=== PATIENT | male | born 1945 | race African-American/Black ===

== ENCOUNTER 2019-11-21 13:22 | Inpatient (IN) | payer MEDICAID, OTHER ==
[~2019-11-21] VITALS: Ht 172.7 cm; Wt 86.8 kg
[2019-11-21] MEDS ORDERED: LASIX (13:29)
[2019-11-21] MEDS ORDERED: ELIQUIS (13:29)
[2019-11-21] MEDS ORDERED: SODIUM CHLORIDE 0.9% 1,000 ML IV ONE (14:45)
[2019-11-21 15:48] LABS: CHLORIDE 117 mEq/L (98-107)
[2019-11-21 16:00] LABS: CLARITY URINE CLEAR (CLEAR); COLOR URINE YELLOW (YELLOW); KETONES URINE NEGATIVE (NEGATIVE); LEUKOCYTE ESTERASE URINE NEGATIVE (NEGATIVE); NITRITE URINE NEGATIVE (NEGATIVE); OCCULT BLOOD URINE 2+ (NEGATIVE); PROTEIN URINE 2+ (NEGATIVE); UROBILINOGEN URINE 0.2 E.U./dL (0.2-1.0)
[2019-11-21] MEDS ORDERED: INSULIN REGULAR (HUMULIN R) 300UNITS/3ML IV ONE (16:45)
[2019-11-21] MEDS ORDERED: DEXTROSE 50% WATER 50ML SYRINGE IV ONE (16:45)
[2019-11-21] MEDS ORDERED: CALCIUM GLUCONATE 1,000 MG in DEXT 5% WATER 100 ML IV ONE (16:45)
[2019-11-21] MEDS ORDERED: SODIUM BICARBONATE 8.4% 1 MEQ/ML 50ML SYR IV ONE (16:45)
[2019-11-21 16:58] LABS: HEMATOCRIT. 40.9 % (42.0-52.0); HEMOGLOBIN. 13.2 g/dL (14.0-18.0); MEAN CORPUSCULAR HEMOGLOBIN 20.9 pg (28.0-32.0); MEAN CORPUSCULAR VOLUME 64.9 fL (80.0-94.0); PLATELET 189 x1000/uL (130-400); RED CELL DISTRIBUTION WIDTH 18.2 % (11.6-14.6)
[2019-11-21 17:28] LABS: PLATELET ESTIMATE NORMAL
[2019-11-21] MEDS ORDERED: HYDRALAZINE 20MG/ML VIAL IV PRN (17:45)
[2019-11-21] MEDS ORDERED: ACETAMINOPHEN 325MG TABLET PO PRN (17:45)
[2019-11-21] MEDS ORDERED: ONDANSETRON HCL 4MG/2ML INJ IV PRN (17:45)
[2019-11-21] MEDS ORDERED: CEFTRIAXONE 1 G PREMIX 50 ML IV SCH (18:00)
[2019-11-21] MEDS ORDERED: SODIUM POLYSTYRENE SULFONATE 15 G/60 ML BOT PO NR (18:00)
[2019-11-21] MEDS ORDERED: ASPIRIN 81MG TABLET PO ONE (18:30)
[2019-11-21] MEDS ORDERED: AZITHROMYCIN 500 MG in DEXT 5% WATER 250 ML IV SCH (19:00)
[2019-11-21 21:15] VITALS: BP 130/97
[2019-11-21] MEDS: HEPARIN 5000 UNITS/ML VIAL SUBCUT SCH (21:40)
[2019-11-21 22:24] VITALS: BP 130/97
[2019-11-22] VITALS: BP 104/75
[2019-11-22 04:00] VITALS: BP 124/95
[2019-11-22 07:58] LABS: HEMATOCRIT. 43.6 % (42.0-52.0); MEAN CORPUSCULAR HEMOGLOBIN 20.9 pg (28.0-32.0); MEAN CORPUSCULAR VOLUME 65.1 fL (80.0-94.0); RED CELL DISTRIBUTION WIDTH 18.5 % (11.6-14.6)
[2019-11-22 08:00] VITALS: BP 110/79
[2019-11-22 08:06] LABS: CHLORIDE 120 mEq/L (98-107)
[2019-11-22] MEDS: HEPARIN 5000 UNITS/ML VIAL SUBCUT SCH ×2 (08:43→21:23)
[2019-11-22 09:48] LABS: PLATELET 208 x1000/uL (130-400)
[2019-11-22 09:52] LABS: PLATELET ESTIMATE NORMAL
[2019-11-22 12:00] VITALS: BP_SYST 110; BP_SYST 125; BP_DIAS 79; BP_DIAS 86
[2019-11-22] MEDS: DEXAMETHASONE 2MG TABLET PO SCH (14:40)
[2019-11-22] MEDS: CEFTRIAXONE 1,000 MG in DEXTROSE 5% WATER 50 ML IV SCH (14:40)
[2019-11-22] MEDS: SODIUM BICARBONATE 100 MEQ in DEXTROSE 5% WATER 900 ML IV SCH ×2 (15:51→23:53)
[2019-11-22] MEDS: AZITHROMYCIN 500MG in DEXTROSE 5% WATER 250ML IV SCH (15:51)
[2019-11-22 16:00] VITALS: BP 107/76
[2019-11-22] MEDS: ALBUTEROL 6.7GM HFA INHALER ORI SCH ×2 (17:31→21:20)
[2019-11-22 20:00] VITALS: BP 116/85
[2019-11-23] VITALS (7 sets, daily range): BP systolic 114–133; BP diastolic 87–96
[2019-11-23] MEDS: TRAZODONE HCL 50MG TABLET PO PRN (02:25)
[2019-11-23] MEDS: ALBUTEROL 6.7GM HFA INHALER ORI SCH ×4 (03:10→21:00)
[2019-11-23 07:49] LABS: CHLORIDE 118 mEq/L (98-107)
[2019-11-23 08:03] LABS: HEMATOCRIT. 38.2 % (42.0-52.0); HEMOGLOBIN. 12.2 g/dL (14.0-18.0); MEAN CORPUSCULAR HEMOGLOBIN 20.9 pg (28.0-32.0); MEAN CORPUSCULAR VOLUME 65.4 fL (80.0-94.0); MEAN PLATELET VOLUME 10.7 fl (7.4-10.4); PLATELET 171 x1000/uL (130-400); RED BLOOD CELL COUNT 5.84 mill/uL (4.7-6.1); RED CELL DISTRIBUTION WIDTH 18.3 % (11.6-14.6)
[2019-11-23] MEDS: DEXAMETHASONE 2MG TABLET PO SCH (09:48)
[2019-11-23] MEDS: HEPARIN 5000 UNITS/ML VIAL SUBCUT SCH (09:48)
[2019-11-23 10:50] LABS: NUCLEATED RED BLOOD CELLS 1 /100 WBC
[2019-11-23 10:51] LABS: PLATELET ESTIMATE NORMAL
[2019-11-23] MEDS: SODIUM BICARBONATE 100 MEQ in DEXTROSE 5% WATER 900 ML IV SCH ×2 (12:59→19:00)
[2019-11-23] MEDS: CEFTRIAXONE 1,000 MG in DEXTROSE 5% WATER 50 ML IV SCH (12:59)
[2019-11-23] MEDS: AZITHROMYCIN 500MG in DEXTROSE 5% WATER 250ML IV SCH (15:03)
[2019-11-24] VITALS: BP 115/77
[2019-11-24 04:00] VITALS: BP 113/83
[2019-11-24] MEDS: SODIUM BICARBONATE 100 MEQ in DEXTROSE 5% WATER 900 ML IV SCH ×2 (06:22→15:00)
[2019-11-24 07:14] LABS: CHLORIDE 113 mEq/L (98-107)
[2019-11-24 07:18] LABS: HEMATOCRIT. 39.1 % (42.0-52.0); HEMOGLOBIN. 12.6 g/dL (14.0-18.0); RED BLOOD CELL COUNT 6.01 mill/uL (4.7-6.1); RED CELL DISTRIBUTION WIDTH 17.7 % (11.6-14.6)
[2019-11-24 08:00] VITALS: BP 132/97
[2019-11-24 09:15] LABS: PLATELET ESTIMATE NORMAL
[2019-11-24 09:16] LABS: MEAN PLATELET VOLUME 11.4 fl (7.4-10.4); PLATELET 227 x1000/uL (130-400)
[2019-11-24] MEDS ORDERED: SODIUM POLYSTYRENE SULFONATE 15 G/60 ML BOT PO SCH (10:00)
[2019-11-24] MEDS: DEXAMETHASONE 2MG TABLET PO SCH (10:06)
[2019-11-24] MEDS: APIXABAN 5 MG TABLET PO SCH ×2 (10:06→17:16)
[2019-11-24 12:00] VITALS: BP 135/96
[2019-11-24] MEDS: CEFTRIAXONE 1,000 MG in DEXTROSE 5% WATER 50 ML IV SCH ×2 (13:00→17:16)
[2019-11-24] MEDS ORDERED: HALOPERIDOL LACTATE 5MG/ML VIAL IM PRN (13:30)
[2019-11-24] MEDS: RISPERIDONE 0.5MG TABLET PO SCH (13:34)
[2019-11-24] MEDS: DILTIAZEM HCL 30MG TABLET PO SCH ×2 (14:00→17:16)
[2019-11-24] MEDS: AZITHROMYCIN 500MG in DEXTROSE 5% WATER 250ML IV SCH (14:00)
[2019-11-24 16:00] VITALS: BP 139/94
[2019-11-24 20:00] VITALS: BP 115/81
[2019-11-24] MEDS ORDERED: CEFP100T9 PO (22:44)
[2019-11-25] VITALS: BP 134/88
[2019-11-25] MEDS: TRAZODONE HCL 50MG TABLET PO PRN (00:18)
[2019-11-25] MEDS: SODIUM BICARBONATE 100 MEQ in DEXTROSE 5% WATER 900 ML IV SCH (01:00)
[2019-11-25 04:00] VITALS: BP 120/89
[2019-11-25] MEDS: DILTIAZEM HCL 30MG TABLET PO SCH ×3 (05:04→21:20)
[2019-11-25 05:15] LABS: HEMATOCRIT. 35.7 % (42.0-52.0); HEMOGLOBIN. 11.3 g/dL (14.0-18.0); MEAN CORPUSCULAR HEMOGLOBIN 20.5 pg (28.0-32.0); MEAN CORPUSCULAR VOLUME 64.9 fL (80.0-94.0); MEAN PLATELET VOLUME 10.8 fl (7.4-10.4); PLATELET 216 x1000/uL (130-400)
[2019-11-25 05:23] LABS: CHLORIDE 112 mEq/L (98-107)
[2019-11-25 08:00] VITALS: BP 102/76
[2019-11-25 08:03] LABS: PLATELET ESTIMATE NORMAL
[2019-11-25] MEDS: RISPERIDONE 0.5MG TABLET PO SCH ×2 (08:38→16:32)
[2019-11-25] MEDS: DEXAMETHASONE 2MG TABLET PO SCH (08:38)
[2019-11-25] MEDS: APIXABAN 5 MG TABLET PO SCH ×2 (08:40→16:32)
[2019-11-25 12:00] VITALS: BP 99/68
[2019-11-25] MEDS: CEFTRIAXONE 1,000 MG in DEXTROSE 5% WATER 50 ML IV SCH (13:00)
[2019-11-25] MEDS: AZITHROMYCIN 500MG in DEXTROSE 5% WATER 250ML IV SCH (14:00)
[2019-11-25 16:00] VITALS: BP 101/80
[2019-11-25] MEDS: CITRIC ACID/SODIUM CITRATE SOLN 30ML UDC PO SCH ×3 (16:32→16:38)
[2019-11-25 20:00] VITALS: BP 98/68
[2019-11-26] VITALS: BP 116/78
[2019-11-26 04:00] VITALS: BP 121/83
[2019-11-26] MEDS: DILTIAZEM HCL 30MG TABLET PO SCH ×2 (05:53→14:37)
[2019-11-26 08:00] VITALS: BP 111/79
[2019-11-26] MEDS: APIXABAN 5 MG TABLET PO SCH ×2 (08:57→18:18)
[2019-11-26] MEDS: CITRIC ACID/SODIUM CITRATE SOLN 30ML UDC PO SCH ×3 (08:57→18:18)
[2019-11-26] MEDS: RISPERIDONE 0.5MG TABLET PO SCH ×2 (08:57→18:18)
[2019-11-26] MEDS ORDERED: DEXAMETHASONE 2MG TABLET PO SCH (09:00)
[2019-11-26 12:00] VITALS: BP 120/80
[2019-11-26] MEDS: ALBUTEROL 6.7GM HFA INHALER ORI SCH ×2 (12:00→18:00)
[2019-11-26 15:58] LABS: BASOPHILS % 0.1 % (0.0-2.0); HEMATOCRIT. 37.8 % (42.0-52.0); HEMOGLOBIN. 12.1 g/dL (14.0-18.0); LYMPHOCYTES % 8.5 % (20.0-50.0); MEAN CORPUSCULAR HEMOGLOBIN 20.7 pg (28.0-32.0); MEAN PLATELET VOLUME 10.3 fl (7.4-10.4); MONOCYTES % 6.8 % (2.0-8.0); NEUTROPHILS % 84.6 % (40.0-76.0); PLATELET 181 x1000/uL (130-400); RED BLOOD CELL COUNT 5.82 mill/uL (4.7-6.1); RED CELL DISTRIBUTION WIDTH 16.7 % (11.6-14.6)
[2019-11-26 16:00] VITALS: BP 130/93
[2019-11-26 16:21] LABS: CHLORIDE 111 mEq/L (98-107)
[2019-11-26 20:19] VITALS: BP 121/86
== END 2019-11-26 21:21 | disposition short-term general hospital (02) | DRG 871 ==
LOC: ER 13:22 → 7WST 17:14 → EDBEDREQSVC 17:23 → EDBEDREQ 17:23 → ENRESERV 19:32
PROVIDERS: ADMIT Internal Medicine; ATTEND Internal Medicine
DX: A41.89 Other specified sepsis (principal); U07.1 COVID-19; J96.01 Acute respiratory failure with hypoxia; J12.89 Other viral pneumonia; I21.4 Non-ST elevation (NSTEMI) myocardial infarction; G93.41 Metabolic encephalopathy; N17.9 Acute kidney failure, unspecified; E87.0 Hyperosmolality and hypernatremia; E87.2 Acidosis; B97.89 Other viral agents as the cause of diseases classified elsewhere; E83.51 Hypocalcemia; E87.8 Other disorders of electrolyte and fluid balance, not elsewhere classified; I10 Essential (primary) hypertension; Z96.643 Presence of artificial hip joint, bilateral; I44.4 Left anterior fascicular block; E87.5 Hyperkalemia; D72.810 Lymphocytopenia; F09 Unspecified mental disorder due to known physiological condition; T38.0X5A Adverse effect of glucocorticoids and synthetic analogues, initial encounter; Z86.19 Personal history of other infectious and parasitic diseases; Y92.89 Other specified places as the place of occurrence of the external cause
CPT/HCPCS: 36415; 71045; 80048; 80053; 81003; 82962; 83036; 83735; 83880; 84145; 84484; 85025; 87635; 93005; 94640; 96365; 99291; J0456; J0610; J0696; J1630; J1644; J1815; J3490; J7030; J7060; J7070; J8540